=== PATIENT | male | born 1970 | race Caucasian/White ===

== ENCOUNTER 2019-01-31 05:09 | Emergency (ER) | payer SELFPAY ==
[2019-01-31] MEDS ORDERED: IBUPROFEN 800 MG TABLET PO ONE (05:27)
--- NOTE | 2019-01-31 05:59 | ER Document Report ---
HPI - HPI Patient complains to provider of: sore throat Time Seen by Provider: 01/31/19 05:20 Pain Level: 3 Context: Patient is a 48-year-old male presents to the emergency department for sore throat for approximately 5 days. Patient states he is also had bilateral ear pain and congestion. He is denying any fevers. States this morning when he woke up he felt as though his throat was "more swollen than normal." Patient is denying any respiratory distress or chest pain. Patient voices he takes no medications states he was told in the past he did have high blood pressure but was not treated with medications. Patient voices he has been taking [id number]-vxo-hoxrwyc cold medications for the last couple of days. - CONSTITUTIONAL Constitutional: DENIES: Fever, Chills - EENT EENT: REPORTS: Sore Throat - red and swollen, Ear Pain. DENIES: Eye problems - NEURO Neurology: DENIES: Headache, Weakness, Vision blurred, Dizzinesss / Vertigo - CARDIOVASCULAR Cardiovascular: DENIES: Chest pain - RESPIRATORY Respiratory: DENIES: Trouble Breathing, Coughing - GASTROINTESTINAL Gastrointestinal: DENIES: Abdominal Pain, Black / Bloody Stools - URINARY Urinary: DENIES: Dysuria, Urgency, Frequency - MUSCULOSKELETAL Musculoskeletal: DENIES: Extremity pain Past Medical History - General Information source: Patient - Social History Smoking Status: Current Every Day Smoker Family History: Reviewed & Not Pertinent Patient has suicidal ideation: No Patient has homicidal ideation: No Vertical Provider Document - CONSTITUTIONAL Agree With Documented VS: Yes Notes: GENERAL: Alert, interacts well. No acute distress. HEAD: Normocephalic, atraumatic. EYES: Pupils equal, round, and reactive to light. Extraocular movements intact. ENT: Oral mucosa moist, tongue midline. Nares patent, swollen turbinates are bilaterally, TM's intact, nonerythematous, nonbulging bilaterally. Pharynx erythematous, tonsils +2 and symmetrical. No exudate noted. NECK: Full range of motion. Supple. Trachea midline. No lymphadenopathy appreciated LUNGS: Clear to auscultation bilaterally, no wheezes, rales, or rhonchi. No respiratory distress. HEART: Regular rate and rhythm. No murmur ABDOMEN: Soft, non-tender. Non-distended. Bowel sounds present in all 4 quadrants. EXTREMITIES: Moves all 4 extremities spontaneously. No edema, normal radial and dorsalis pedis pulses bilaterally. No cyanosis. BACK: no cervical, thoracic, lumbar midline tenderness. No saddle anesthesia, normal distal neurovascular exam. NEUROLOGICAL: Alert and oriented x3. Normal speech. cranial nerves II through XII grossly intact. PSYCH: Normal affect, normal mood. SKIN: Warm, dry, normal turgor. No rashes or lesions noted. - INFECTION CONTROL TRAVEL OUTSIDE OF THE [place] IN LAST 30 DAYS: No Course - Re-evaluation Re-evalutation: Laboratory 01/31/19 05:28 Group A Strep Rapid NEGATIVE Discussed with patient at bedside negative strep test. Discussed use of [id number] cold medications. Also discussed his elevation in blood pressure. Discussed close follow-up with primary care provider. Patient is stable for discharge. - Vital Signs Vital signs: Temp Pulse Resp BP Pulse Ox 97.7 F 96 16 170/92 H 96 01/31/19 05:16 01/31/19 05:16 01/31/19 05:16 01/31/19 05:16 01/31/19 05:16 Discharge - Discharge Clinical Impression: Sore throat Condition: Stable Disposition: HOME, SELF-CARE Instructions: Sore Throat (OM) Additional Instructions: As we discussed you have been seen and treated in the emergency department for your sore throat. Your rapid strep test was negative in the emergency room. Please continue take gmoh-beg-wskoois cold medications for generalized discomfort. Please also follow-up with your primary care provider for your elevation in blood pressure. Please return to the emergency department for any concerns. Prescriptions: Mometasone Furoate [Nasonex] 1 spray NS Q12 #1 spray.pump Forms: Elevated Blood Pressure, Return to Work
[2019-01-31 06:04] VITALS: BP 168/72
== END 2019-01-31 06:12 | disposition home or self-care (01) ==
LOC: ER 05:09
DX: J02.9 Acute pharyngitis, unspecified (principal); H92.03 Otalgia, bilateral; I10 Essential (primary) hypertension; F17.200 Nicotine dependence, unspecified, uncomplicated
CPT/HCPCS: 87070; 87880